=== PATIENT | male | born 1950 | race Caucasian/White ===

== ENCOUNTER → 2016-06-04 | Outpatient (CLI) | payer BC | LOC: GMAH 11:22 | PROVIDERS: ATTEND Family Medicine | DX: Z00.01 Encounter for general adult medical examination with abnormal findings (principal); E29.1 Testicular hypofunction; E78.2 Mixed hyperlipidemia; R53.81 Other malaise; Z12.5 Encounter for screening for malignant neoplasm of prostate ==

== ENCOUNTER → 2016-06-19 | Outpatient (CLI) | payer BC | LOC: GMAH 17:47 | PROVIDERS: ATTEND Family Medicine | DX: M10.9 Gout, unspecified (principal) ==

== ENCOUNTER → 2016-09-10 | Outpatient (CLI) | payer BC | END | disposition home or self-care (01) | LOC: GMAH 12:12 | PROVIDERS: ATTEND Family Medicine | DX: M10.9 Gout, unspecified (principal) ==

== ENCOUNTER → 2017-06-17 | Outpatient (CLI) | payer BC | END | disposition home or self-care (01) | LOC: GMAH 10:54 | PROVIDERS: ATTEND Family Medicine | DX: Z12.5 Encounter for screening for malignant neoplasm of prostate (principal); E78.2 Mixed hyperlipidemia; Z00.01 Encounter for general adult medical examination with abnormal findings ==

== ENCOUNTER → 2018-08-12 | Outpatient (CLI) | payer BC | LOC: GMAH 11:00 | PROVIDERS: ATTEND Family Medicine | DX: Z00.01 Encounter for general adult medical examination with abnormal findings (principal); Z12.5 Encounter for screening for malignant neoplasm of prostate ==

== ENCOUNTER 2019-04-24 19:32 | Emergency (ER) | payer BC ==
[2019-04-24 19:51] VITALS: TEMP 97.8
--- NOTE | 2019-04-24 20:47 | ED.PDOC ---
History of Present Illness - General Chief Complaint: Blood Pressure Problem Stated Complaint: elevated BP Time Seen by Provider: 04/24/19 20:06 Additional Information: Patient's chief complaint is hypertension. Patient saw his PCP today for a muscle spasm in his neck. At his doctor's office patient's systolic pressure was 180 and patient's PCP gave patient a prescription for Flexeril and told him to monitor his pressures at home. Later this evening after returning home patient repeated his blood pressure and his systolic was 200. Patient is completely asymptomatic and complains of no chest pain, shortness of breath, headache, abdominal pain, or any other symptoms. He is here only for incidentally noted hypertension. Patient takes Carvedilol 25 mg bid and Losartan 50 mg qd for his blood pressure and indicates he is compliant with his medications. - History of Present Illness Allergies/Adverse Reactions: Allergies Penicillins Allergy (Verified 04/24/19 20:36) Home Medications: Ambulatory Orders Atorvastatin Calcium 40 mg PO DAILY 04/24/19 Carvedilol 25 mg PO BID 04/24/19 Cyclobenzaprine HCl [Flexeril] 10 mg PO DAILY 04/24/19 Losartan Potassium 50 mg PO DAILY 04/24/19 Review of Systems - Review of Systems Constitutional: States: no symptoms reported. Denies: chills, fever EENTM: States: no symptoms reported Respiratory: States: no symptoms reported. Denies: cough, orthopnea, short of breath Cardiology: States: no symptoms reported. Denies: chest pain, palpitations Gastrointestinal/Abdominal: States: no symptoms reported. Denies: abdominal pain, diarrhea, nausea, vomiting Genitourinary: States: no symptoms reported Musculoskeletal: States: no symptoms reported Skin: States: no symptoms reported Neurological: States: no symptoms reported. Denies: headache, numbness, paresthesia Endocrine: States: no symptoms reported Hematologic/Lymphatic: States: no symptoms reported Past Medical History (General) - Patient Medical History Hx Cardiac Disorders: Yes - stents placed, x7 Hx Hypertension: Yes Hx Diabetes: No Hx Gastroesophageal Reflux: No Hx Cancer: Yes - skin Surgical History: other - Vaccination History Hx Tetanus, Diphtheria Vaccination: Yes Hx Influenza Vaccination: Yes Hx Pneumococcal Vaccination: Yes - Social History Hx Tobacco Use: No Hx Alcohol Use: Yes - Triage Comment ED Triage Comment: Pt reports his blood pressure is elevated. Pt was seen in urgent [facility] earlier today for back pains he was having and his bp was elevated then. Pt stated he went home and rested, had few beers, and rechecked his bp again. It was still elevated. Family Medical History - Family History Mother Hx Cardiac Disease: Yes Physical Exam - Physical Exam General Appearance: Alert, Comfortable, No apparent distress, Well Developed, Well Nourished Eye Exam: bilateral normal Neck: full range of motion, supple Respiratory: chest non-tender, lungs clear, normal breath sounds, no respiratory distress, no accessory muscle use Cardiovascular/Chest: normal peripheral pulses, regular rate, rhythm, no edema, no gallop, no JVD, no murmur Gastrointestinal/Abdominal: normal bowel sounds, non tender, soft, no organomegaly Back Exam: normal inspection, no CVA tenderness Extremity: normal range of motion, normal inspection, no pedal edema 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 Patient indicates that he has a pre- established appointment with his PCP on May 05. Patient's pressure is 160 systolic in the ED and patient to increase his losartan from 50 mg daily to 50 mg twice a day and maintain his carvedilol 25 mg twice a day. He will keep a log of his blood pressures and report to his physician for his physician to consider increasing his carvedilol dosage as well. Vital signs stable, patient NAD and looks clinically well, and I believe is safe for discharge with outpati ent follow-up. Follow-up instructions, discharge instructions and return to ED precautions discussed with patient. Patient voices understanding and willingness to comply with instructions. All laboratory results have been discussed with the patient, and all questions answered. Patient is happy with plan. Departure - Departure Clinical Impression: Essential hypertension Time of Disposition: 21:18 Disposition: Discharge to Home or Self Care Condition: Good Departure Forms: ED Discharge - Pt. Copy, Patient Portal Self Enrollment Instructions: DI for High Blood Pressure Referrals: Osei Toro MD [Primary Care Provider] - 1-2 Weeks Home Medications: Ambulatory Orders Atorvastatin Calcium 40 mg PO DAILY 04/24/19 Carvedilol 25 mg PO BID 04/24/19 Cyclobenzaprine HCl [Flexeril] 10 mg PO DAILY 04/24/19 Losartan Potassium 50 mg PO DAILY 04/24/19 Additional Instructions: Please increase your losartan from 50 mg daily to 50 mg twice a day, and maintain a blood pressure record to present your physician at follow-up for reevaluation and blood pressure management.
[2019-04-24 21:03] VITALS: BP 164/92; O2SAT 94
== END 2019-04-24 21:22 | disposition home or self-care (01) ==
LOC: ER 19:32
DX: I10 Essential (primary) hypertension (principal); I51.9 Heart disease, unspecified; Z95.5 Presence of coronary angioplasty implant and graft; Z85.828 Personal history of other malignant neoplasm of skin; Z79.899 Other long term (current) drug therapy; Z88.0 Allergy status to penicillin